=== PATIENT | male | born 1985 | race Caucasian/White ===

== ENCOUNTER 2016-05-14 18:41 | Emergency (ER) | payer OTHER ==
[~2016-05-14] VITALS: Ht 190.5 cm; Wt 91.2 kg
[2016-05-14 18:48] VITALS: TEMP 36.5; Ht 190.5 cm; Wt 91.2 kg
[2016-05-14] MEDS ORDERED: SODIUM CHLORIDE 0.9% 500ML 500 ML IV STA (19:03)
[2016-05-14] MEDS ORDERED: LORAZEPAM 0.5 MG TAB SL STA (19:03)
--- NOTE | 2016-05-14 19:46 | DIAGNOSTIC IMAGING REPORT ---
CHEST ONE VIEW PORTABLE CLINICAL HISTORY: palpitations dyspnea COMPARISON STUDY: 01/10/2014 FINDINGS: The bones soft tissues and hemidiaphragms are normal. The cardiomediastinal silhouette is normal. The lungs are clear. The pulmonary vasculature is normal. IMPRESSION: Negative chest. Electronically signed by: Rene Rodriges M.D. 05/14/2016 7:45 PM Dictated Date/Time: 05/14/2016 7:45 PM
[2016-05-14 19:51] LABS: BASO ABS # 0.07 K/uL (0-0.2); BASOPHIL % 0.9 % (0-2); COMPLETE YES; EOSINOPHIL % 0.9 %; HEMATOCRIT 46.9 % (42-52); LYMPH ABS # 1.12 K/uL (1.2-3.4); LYMPHOCYTE % 14.2 %; MEAN CELL VOLUME 85.1 fL (80-100); MEAN CORPUSCULAR HEMOGLOBIN 30.5 pg (25-34); MEAN CORPUSCULAR HGB CONC 35.8 g/dl (32-36); MEAN PLATELET VOLUME 11.2 fL (7.4-10.4); NEUTROPHILS % 51.3 %; PLATELET COUNT 251 K/uL (130-400); RED BLOOD COUNT 5.51 M/uL (4.7-6.1); VARIANT LYM ABS # 1.88 K/uL; VARIANT LYMPHOCYTE % 23.9 %; WHITE BLOOD COUNT 7.88 K/uL (4.8-10.8)
[2016-05-14] MEDS ORDERED: PROT1POW PO (19:53)
[2016-05-14 19:55] LABS: BLOOD UREA NITROGEN 17 mg/dl (7-18); BUN/CREATININE RATIO 14.3 (10-20); CARBON DIOXIDE 21 mmol/L (21-32); CHLORIDE 105 mmol/L (98-107); GLUCOSE 109 mg/dl (70-99); SODIUM 140 mmol/L (136-145)
[2016-05-14] MEDS ORDERED: POTASSIUM CHLORIDE 10 MEQ TABCR PO STA (20:35)
--- NOTE | 2016-05-14 21:28 | EMERGENCY ROOM VISIT NOTE ---
History Report prepared by Pritiibja: Danae Stephens Under the Supervision of: Dr. Nolberto Dorado D.O. First contact with patient: 18:53 Chief Complaint: PALPITATIONS Stated Complaint: HEART PALPATATIONS,NUMB HANDS History of Present Illness The patient is a 31 year old male who presents to the Emergency Room with complaints of constant heart palpitations 2 hours ago. The patient states that he was at the movies when he began feeling his heart "beating out of his chest" . He reports that he felt his heart beating and then he began to sweat, hand tingling, intermittent chest pain, pressure behind his eyes, and tingling in the feet. He notes that he has been experiencing palpitations and the feeling of his heart beating over the last few months every night that he attributed to stress from his second year of [employer] school. The patient denies any dizziness, lightheadedness, changes in vision, cough runny nose, fevers, nausea, vomiting, diarrhea, pain with urination, history of diabetes, hypertension, high cholesterol, history of cancer, or known family history of sudden at a young age. He also denies any swelling of the calves, recent trips, recent surgeries, hemoptysis, smoking or previous blood clots. He exercises/works out about 5 times a week and notes that he does not experience any chest pain or shortness of breath during these activities. Source of History: patient Onset: 2 hours ago Position: chest Quality: other (palpitations) Timing: constant Associated Symptoms: + chest pain, No diarrhea, No fevers, No nausea, No urinary symptoms, No vomiting Note: He reports that he felt his heart racing and then he began to sweat, hand tingling, pressure behind his eyes, and tingling in the feet. The patient denies any dizziness, lightheadedness, changes in vision, cough runny nose, history of diabetes, hypertension, high cholesterol, history of cancer, and recent long trips. Review of Systems See HPI for pertinent positives & negatives. A total of 10 systems reviewed and were otherwise negative. Past Medical & Surgical Medical Problems: (1) No Known Active Medical Problems Family History No pertinent family history stated. Social History Smoking Status: Never Smoker Smokeless Tobacco Use: No Alcohol Use: occasionally Housing Status: lives with family Occupation Status: student Current/Historical Medications Scheduled Protein (Protein), 1 DOSE PO prn Allergies Coded Allergies: No Known Allergies (Unverified , 05/14/16) Physical Exam Vital Signs Date Time Temp Pulse Resp B/P Pulse Ox O2 Delivery O2 Flow Rate FiO2 05/14/16 20:32 55 18 140/84 95 Room Air 05/14/16 19:33 55 18 127/82 100 Room Air 05/14/16 19:17 63 05/14/16 19:03 100 Room Air 05/14/16 18:48 36.5 101 20 155/95 98 Room Air Physical Exam GENERAL: anxious, sitting up in bed, non-toxic EYE EXAM: normal conjunctiva, PERRL and EOM's intact OROPHARYNX: no exudate, no erythema, lips, buccal mucosa, and tongue normal and mucous membranes are moist NECK: supple, no nuchal rigidity, no adenopathy, non-tender LUNGS: Clear to auscultation. Normal chest wall mechanics HEART: no murmurs, S1 normal and S2 normal ABDOMEN: abdomen soft, non-tender, normo-active bowel sounds, no masses, no rebound or guarding. BACK: Back is symmetrical on inspection and there is no deformity, no midline tenderness, no CVA tenderness. SKIN: no rashes and no bruising UPPER EXTREMITIES: upper extremities are grossly normal. LOWER EXTREMITIES: No pitting edema. Calves are equal bilateral NEURO EXAM: Normal sensorium, cranial nerves II-XII intact, normal speech, no weakness of arms, no weakness of legs. No drift. Finger to nose intact. Gross sensation intact. Medical Decision & Procedures ER Provider Diagnostic Interpretation: Xray results per the radiologist and my interpretation. CHEST ONE VIEW PORTABLE FINDINGS: The bones soft tissues and hemidiaphragms are normal. The cardiomediastinal silhouette is normal. The lungs are clear. The pulmonary vasculature is normal. IMPRESSION: Negative chest. Electronically signed by: Rene Rodriges M.D. 05/14/2016 7:45 PM Dictated Date/Time: 05/14/2016 7:45 PM Laboratory Results 05/14/16 19:09 Red Blood Count 5.51, Mean Corpuscular Volume 85.1, Mean Corpuscular Hemoglobin 30.5, Mean Corpuscular Hemoglobin Concent 35.8, Mean Platelet Volume 11.2 05/14/16 19:09 05/14/16 20:01 Test 05/14/16 19:09 05/14/16 20:01 05/14/16 20:58 White Blood Count 7.88 K/uL (4.8-10.8) Red Blood Count 5.51 M/uL (4.7-6.1) Hemoglobin 16.8 g/dL (14.0-18.0) Hematocrit 46.9 % (42-52) Mean Corpuscular Volume 85.1 fL (80-100) Mean Corpuscular Hemoglobin 30.5 pg (25-34) Mean Corpuscular Hemoglobin Concent 35.8 g/dl (32-36) Platelet Count 251 K/uL (130-400) Mean Platelet Volume 11.2 fL (7.4-10.4) RDW Standard Deviation 39.7 fL (36.4-46.3) RDW Coefficient of Variation 12.8 % (11.5-14.5) Neutrophils % (Manual) 51.3 % Lymphocytes % (Manual) 14.2 % Variant Lymphocytes % (manual) 23.9 % Monocytes % (Manual) 8.8 % Eosinophils % (Manual) 0.9 % Basophils % (Manual) 0.9 % (0-2) Neutrophils # (Manual) 4.04 K/uL (1.4-6.5) Total Absolute Neutrophils 4.04 K/uL (1.4-6.5) Lymphocytes # (Manual) 1.12 K/uL (1.2-3.4) Absolute Variant Lymphocytes 1.88 K/uL Total Absolute Lymphocytes 3.00 K/uL (1.2-3.4) Monocytes # (Manual) 0.69 K/uL (0.11-0.59) Eosinophils # (Manual) 0.07 K/uL (0-0.5) Basophils # (Manual) 0.07 K/uL (0-0.2) Red Blood Cell Morphology Unremarkable Anion Gap 14.0 mmol/L (3-11) Est Creatinine Clear Calc Drug Dose 108.6 ml/min Estimated GFR () 94.1 Estimated GFR (Non- 81.2 BUN/Creatinine Ratio 14.3 (10-20) Calcium Level 9.0 mg/dl (8.5-10.1) D-Dimer < 190 ug/L FEU (0-500) Troponin I < 0.015 ng/ml (0-0.045) Laboratory results per my review. Medications Administered Medications (Trade) Dose Ordered Sig/Byron Route Start Time Stop Time Status Last Admin Dose Admin Lorazepam 0.5 mg 0.5 mg NOW STAT SL 05/14/16 19:03 05/14/16 19:05 DC 05/14/16 19:27 0.5 MG Sodium Chloride (Nss 500ml) 500 ml @ 999 mls/hr Q31M STAT IV 05/14/16 19:03 05/14/16 19:33 DC 05/14/16 19:32 999 MLS/HR Potassium Chloride (Klor-Con M10) 40 meq NOW STAT PO 05/14/16 20:35 05/14/16 20:36 DC 05/14/16 20:40 40 MEQ ECG Indication: palpitations Rate (beats per minute): 54 Rhythm: sinus bradycardia Findings: other (normal axis, t wave flattening) Comparison ECG Date: 01/10/14 Change: T wave flattening is new. ED Course ED COURSE: Vital signs were reviewed and showed tachycardia The patients medical record was reviewed The above diagnostic studies were performed and reviewed. ED treatments and interventions as stated above. 1854: The patient was evaluated in room C7. A complete history and physical examination was performed. 1902: Sodium Chloride 500 ml @ 999 mls/hr IV, Ativan Tab 0.5mg SL. 2013: I reevaluated the patient. He is feeling better. 2037: Upon reevaluation, the patient is hemodynamically stable.I discussed my findings with the patient and he understands and agrees with the treatment plan. 944PM: PT D/C following repeat neg trop. Based on the patients age, coexisting illnesses, exam and lab findings the decision to treat as an outpatient was made. The patient remained stable while under my care. The patient appeared well at the time of discharge. Medical Decision Differential diagnoses includes but is not limited to acute coronary syndrome, myocardial infarction, pericarditis, pulmonary embolus, aortic dissection, pneumonia, pneumothorax, musculoskeletal, shingles, esophageal. Patient is a 31-year-old male with no significant past medical history who presents the ER for palpitations. He notes they can feel his heart beating this started around 5 PM tonight. Associated with this he notes his hands became sweaty any paresthesias in his hands and feet. He notes that he has been having these palpitations every night for the past 9 months. They have become more prominent. He has no cardiac or PE risk factors. Chest x-ray was unremarkable. EKG showed flattening of T waves in the inferior leads with normal intervals. There is no ischemic changes. D-dimer was negative. Potassium was slightly low at 3 which is likely secondary to his tachypnea. Troponins were negative 2. Patient possibly better following the Ativan. There is no arrhythmia. EKG shows no signs of HOCM or ischemia stated above. Patient was discharged to follow-up with his primary care doctor. Discussed with Pt concerning signs and symptoms to watch out for. Pt was instructed to follow up with their PCP and discussed with the patient their option to return to the ED at anytime for persistent or worsening symptoms. The appropriate anticipatory guidance and out-patient management, including indications for return to the emergency department, were explained at length to the patient and understood. Impression Primary Impression: Palpitations Additional Impressions: Anxiety attack Hypokalemia Scribe Attestation The scribe's documentation has been prepared under my direction and personally reviewed by me in its entirety. I confirm that the note above accurately reflects all work, treatment, procedures, and medical decision making performed by me. Departure Information Dispostion Home / Self-Care Referrals Reinaldo Willingham M.D. (PCP) Forms HOME CARE DOCUMENTATION FORM, IMPORTANT VISIT INFORMATION, WORK / SCHOOL INSTRUCTIONS Patient Instructions ED Palpitations, My [facility] Additional Instructions Please follow up with your primary care doctor with in the next 24 hours. Any worsening of your symptoms, please return to the ED immediately. This includes recurrent or worsening chest pain, shortness of breath, passing out, or any other concerning signs or symptoms from your standpoint. Please follow up with your primary care doctor in regards to this persistent palpitations. Problem Qualifiers
[2016-05-14 21:52] VITALS: BP 134/84; PULSE 50; O2SAT 96
== END 2016-05-14 21:52 | disposition home or self-care (01) ==
LOC: C.EDB 18:42 → C.EDC 21:52
DX: R00.2 Palpitations (principal); F41.0 Panic disorder [episodic paroxysmal anxiety]; E87.6 Hypokalemia

== ENCOUNTER → 2017-09-27 | Outpatient (CLI) | payer OTHER ==
[~2017-09-27] MED LIST: PROT1POW PO
[2017-09-27 12:25] LABS: BASO % 0.6 %; BASO ABS # 0.02 K/uL (0-0.2); EOS % 1.7 %; EOS ABS # 0.06 K/uL (0-0.5); HEMATOCRIT 45.4 % (42-52); HEMOGLOBIN 15.4 g/dL (14.0-18.0); LYMPH ABS # 1.38 K/uL (1.2-3.4); MEAN CORPUSCULAR HEMOGLOBIN 29.8 pg (25-34); MEAN CORPUSCULAR HGB CONC 33.9 g/dl (32-36); MEAN PLATELET VOLUME 11.4 fL (7.4-10.4); MONO % 10.5 %; MONO ABS # 0.37 K/uL (0.11-0.59); NEUT % 48.2 %; NEUT ABS # 1.71 K/uL (1.4-6.5); PLATELET COUNT 248 K/uL (130-400); RED CELL DISTRIBUTION WIDTH CV 12.9 % (11.5-14.5); RED CELL DISTRIBUTION WIDTH SD 41.3 fL (36.4-46.3); WHITE BLOOD COUNT 3.54 K/uL (4.8-10.8)
[2017-09-27 12:37] LABS: HEMOGLOBIN A1C 5.4 % (4.5-5.6)
[2017-09-27 12:58] LABS: ALBUMIN 4.2 gm/dl (3.4-5.0); ALKALINE PHOSPHATASE 88 U/L (45-117); ALT/SGPT 43 U/L (12-78); AST/SGOT 24 U/L (15-37); BLOOD UREA NITROGEN 13 mg/dl (7-18); CALCIUM 8.9 mg/dl (8.5-10.1); CARBON DIOXIDE 26 mmol/L (21-32); CHOLESTEROL 128 mg/dl (0-200); CREATININE 1.01 mg/dl (0.60-1.40); GLUCOSE 98 mg/dl (70-99); LDL CHOLESTEROL CALCULATED 63 mg/dl; POTASSIUM 3.7 mmol/L (3.5-5.1); SODIUM 139 mmol/L (136-145); TOTAL PROTEIN 7.5 gm/dl (6.4-8.2); TRANSFERRIN 262 mg/dl (200-360); URIC ACID 4.8 mg/dl (2.6-7.2)
== END | disposition home or self-care (01) ==
LOC: C.LAB 10:42
PROVIDERS: ATTEND Family Medicine
DX: R73.09 Other abnormal glucose (principal); E55.9 Vitamin D deficiency, unspecified; D51.9 Vitamin B12 deficiency anemia, unspecified; E78.9 Disorder of lipoprotein metabolism, unspecified; R53.83 Other fatigue